=== PATIENT | male | born 1975 | race Caucasian/White ===

== ENCOUNTER 2018-06-17 14:57 | Emergency (ER) | payer OTHER ==
[2018-06-17] MEDS ORDERED: PROPARACAINE 0.5% 15 ML OPHT DROP OP ONE (15:33)
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
[2018-06-17] MEDS ORDERED: FLUORESCEIN SODIUM 1 MG STRIP OP ONE (15:38)
[2018-06-17] MEDS ORDERED: OFLOXACIN 0.3% SOLN PREPACK OPHT.BTL TAKEHOME ONE (16:34)
[2018-06-17] MEDS ORDERED: ERYTHROMYCIN 0.5% 1 GM OPHT.OINT EACHEYE ONE ×2 (16:44→17:09)
[2018-06-17 17:19] VITALS: BP 148/89
== END 2018-06-17 17:19 | disposition home or self-care (01) ==
DX: T26.61XA Corrosion of cornea and conjunctival sac, right eye, initial encounter (principal); T54.2X1A Toxic effect of corrosive acids and acid-like substances, accidental (unintentional), initial encounter